=== PATIENT | female | born 1990 | race Two or more races ===

== ENCOUNTER 2020-01-31 12:45 | Inpatient (IN) | payer OTHER ==
[~2020-01-31] VITALS: Ht 170.2 cm; Wt 3.6 kg
[2020-02-05] MEDS ORDERED: PRENATAL CAPLE1 EAC1 PO (08:49)
== END 2020-02-08 11:40 | disposition home or self-care (01) | DRG 785 ==
LOC: OB/GYN 02-05 09:30 → LDR 02-05 10:21 → OB/GYN 02-05 10:21 → O/R 02-05 13:22 → OB/GYN 02-05 15:10
PROVIDERS: ADMIT Obstetrics & Gynecology; ATTEND Obstetrics & Gynecology
PROC: 0UB70ZZ Excision of Bilateral Fallopian Tubes, Open Approach (ICD-10-PCS; 2020-02-05)
PROC: 4A1HXFZ Monitoring of Products of Conception, Cardiac Rhythm, External Approach (ICD-10-PCS; 2020-02-05)
PROC: 3E033VJ Introduction of Other Hormone into Peripheral Vein, Percutaneous Approach (ICD-10-PCS; 2020-02-05)
PROC: 10D00Z1 Extraction of Products of Conception, Low, Open Approach (ICD-10-PCS; principal; 2020-02-05 09:30)
DX: O82 Encounter for cesarean delivery without indication (principal); O34.211 Maternal care for low transverse scar from previous cesarean delivery; Z3A.39 39 weeks gestation of pregnancy; Z37.0 Single live birth; Z30.2 Encounter for sterilization